=== PATIENT | male | born 2000 | race Two or more races ===

== ENCOUNTER 2025-07-15 11:37 | Emergency (ER) | payer OTHER ==
[2025-07-15] MEDS: Bacitracin Oint 1 GM U/D Packet TOP ONE (12:00)
[2025-07-15] MEDS: Diphtheria,Pertussis(Acell),Tetanus Vaccine 0.5 ML Syringe IM ONE (12:00)
[2025-07-15] MEDS: Lidocaine 1% with EPINEPHrine 1:100,000 10 ML MDV INJECT ONE (12:00)
== END 2025-07-15 12:30 | disposition home or self-care (01) ==
LOC: CC.ED 11:37
DX: S51.812A Laceration without foreign body of left forearm, initial encounter (principal); Z23 Encounter for immunization; W26.0XXA Contact with knife, initial encounter; Y93.89 Activity, other specified
CPT/HCPCS: 12001; 90471; 90715; 99282; 99282-25; J2004